=== PATIENT | female | born 1930 | race Caucasian/White ===

== ENCOUNTER 2016-08-16 17:25 | Observation (INO) | payer OTHER, BC ==
--- NOTE | 2016-08-16 18:01 | PDOC ---
History of Present Illness <Prerna Thomason - Last Filed: 08/16/16 18:48> - History of Present Illness Initial Comments: 08/16/16 18:00 85-year-old female with a past medical history of advanced COPD, on home oxygen , thyroid cancer, status post thyroidectomy and radiation, cardiomegaly, hypertension, hyperlipidemia, abdominal aortic aneurysm 5.8 cm, hyperlipidemia, gastric ulcer, She was recently hospitalized in April 2016, with possible pneumonia, as well as abdominal pain Patient states that her is currently in the hospital, and she is currently staying with her daughter, as well as with her special needs son She did have an aide, but no longer has one Patient is complaining of dizziness and lightheadedness whenever she sits up, and she feels nauseated when she sits up She also has multiple musculoskeletal complaints including right shoulder, right arm, left back, and right leg She denies any chest pain She states that she's been increasingly lightheaded for the past few days She said 4-5 days ago she had a sore throat and a temperature 100.2, but this has resolved She denies any cough or sputum She denies any vomiting or diarrhea She denies any dysuria urgency or frequency She does admit to some intermittent right-sided abdominal pain She also admits to some right calf pain She states that she came to the ER today because she was feeling more lightheaded She denies any other complaints at this time, and the remainder of the review of systems is negative <Rosa Vera - Last Filed: 08/17/16 14:09> - General Chief Complaint: Lightheaded Stated Complaint: DIZZY Time Seen by Provider: 08/16/16 17:41 Past History <Prerna Thomason - Last Filed: 08/16/16 18:48> - Past Medical History Anemia: Yes Asthma: No Cancer: Yes (THYROID) Cardiac Disorders: Yes ("ENLARGED HEART") CVA: No COPD: Yes (O2 DEPENDENT 5LNC) CHF: No Dementia: No Diabetes: No GI Disorders: No Disorders: No HTN: Yes Hypercholesterolemia: Yes Liver Disease: No Suicide Attempt (Hx): No Seizures: Yes (THYROIDECTOMY) Thyroid Disease: Yes (THYROIDECTOMY) - Surgical History Abdominal Surgery: No Appendectomy: No Cardiac Surgery: No Cholecystectomy: No Lung Surgery: No Neurologic Surgery: No Orthopedic Surgery: No - Psycho/Social/Smoking Cessation Hx Anxiety: No Suicidal Ideation: No Smoking History: Former smoker Have you smoked in the past 12 months: No Number of Cigarettes Smoked Daily: 0 If you are a former smoker, when did you quit?: 2012 Information on smoking cessation initiated: No Hx Alcohol Use: No Drug/Substance Use Hx: No Substance Use Type: None Hx Substance Use Treatment: No <Rosa Vrea - Last Filed: 08/17/16 14:09> - Past Medical History Allergies/Adverse Reactions: Allergies Allergy/AdvReac Type Severity Reaction Status Date / Time Penicillins Allergy Severe Rash Verified 05/10/16 15:54 Home Medications: Ambulatory Orders Levothyroxine [Synthroid -] 125 mcg PO DAILY 04/09/15 Nifedipine ER [Procardia XL -] 90 mg PO HS 07/20/15 Cholecalciferol (Vitamin D3) [Vitamin D3] 2,000 unit PO DAILY tablet 08/08/15 [place]-3 Fatty Acids [[place]-3] 200 mg PO DAILY 05/01/16 Acetaminophen [Tylenol .Regular Strength -] 650 mg PO Q4H PRN #0 tablet Pantoprazole Sodium [Protonix -] 40 mg PO DAILY #30 tablet.ec 05/04/16 Polyethylene Glycol 3350 [Miralax 119 gm Btl -] 17 gm PO DAILY bottle 05/04/16 Albuterol 2.5/Ipratropium 0.5 [Duoneb -] 1 amp NEB QIDR amp 05/16/16 Fluticasone/Salmeterol [Advair 250-50 Diskus] 1 each IH BID 08/16/16 Simvastatin 20 mg PO HS 08/16/16 Review of Systems - Review of Systems Able to Perform ROS?: Yes Comments:: 08/16/16 18:05 12 point review of systems is as per history of present illness and otherwise negative <Rosa Vera - Last Filed: 08/17/16 14:09> *Physical Exam - Vital Signs Last Vital Signs Temp Pulse Resp BP Pulse Ox 98.3 F 94 H 26 H 157/96 100 08/16/16 17:28 08/16/16 17:28 08/16/16 17:28 08/16/16 17:28 08/16/16 17:28 <Prerna Thomason - Last Filed: 08/16/16 18:48> - Vital Signs Last Vital Signs Temp Pulse Resp BP Pulse Ox 98.3 F 94 H 26 H 157/96 100 08/16/16 17:28 08/16/16 17:28 08/16/16 17:28 08/16/16 17:28 08/16/16 17:28 - Physical Exam Comments: 08/16/16 18:05 Physical exam Last Vital Signs Temp Pulse Resp BP Pulse Ox 98.3 F 94 H 26 H 157/96 100 08/16/16 17:28 08/16/16 17:28 08/16/16 17:28 08/16/16 17:28 08/16/16 17:28 GENERAL: The patient is awake, alert, and fully oriented, and in no apparent distress. HEAD: Normal with no signs of trauma. EYES: Sclera anicteric ENT: mucous membranes moist NECK: Normal range of motion, supple LUNGS: Breath sounds equal, clear to auscultation bilaterally. No wheezes, and no crackles. HEART: Regular rate and rhythm, normal S1 and S2 without murmur, rub or gallop. ABDOMEN: The abdomen is soft with normal bowel sounds There is diffuse right-sided abdominal tenderness, without guarding or rebound, and without localization EXTREMITIES: There is right calf tenderness, with full range of motion of the knees and hips bilaterally NEUROLOGICAL: pt is alert and answering questions, pupils are equal with in the context of bilateral cataract surgery Patient is moving all extremities equally, has no facial asymmetry, and has a grossly nonfocal neurologic exam PSYCH: Normal mood, normal affect. SKIN: Warm, Dry, <Rosa Vera - Last Filed: 08/17/16 14:09> ED Treatment Course - RADIOLOGY Radiograph Interpretation: 08/16/16 18:44 Referring Physician: Rosa Rodriguez Patient Name: Melanie Coello THIS IS A PRELIMINARYREPORT FROM [facility] DATE OF SERVICE: 2016-08-16 17:52:04.0 IMAGES: 77 EXAM: HEAD CT WITHOUT CONTRAST HISTORY:Dizziness COMPARISON: None. FINDINGS:Serial transaxial images of the brain are available without intravenous contrast agent demonstrating generalized mild to moderate cortical atrophy with diffuse areas of decreased signal surrounding the lateral ventricles most consistent with chronic small vessel disease. The ventricular system is unremarkable. There is no midline shift or mass-effect or acute hemorrhage. No abnormal fluid collection is seen. The mastoid air cells are well-aerated. The calvarium appears intact IMPRESSION: Findings of chronic parenchymal changes in the right THIS DOCUMENT HAS BEEN ELECTRONICALLY SIGNED Ace Jose MD 08/16/2016 18:35 EST 08/16/16 18:48 Referring Physician: Rosa Rodriguez Patient Name: Melanie Coello THIS IS A PRELIMINARYREPORT FROM [facility] DATE OF SERVICE: 2016-08-16 17:55:48.0 IMAGES: 491 EXAM: CT of the abdomen and pelvis without contrast HISTORY:Right-sided abdominal pain COMPARISON: None. FINDINGS:Serial transaxial images of the abdomen and pelvis are available without oral or intravenous contrast agent. Sagittal and coronal reformatted imaging is also available. Visible portions of the lung base demonstrate probable scarring versus atelectasis and or infiltrate at the right base. There is marked aneurysmal dilatation of the distal most thoracic aorta extending into the proximal abdominal aorta. This measures 5.8 cm in the AP dimension by 6.7 cm in transverse dimension by approximately 7.7 cm in length. A moderate size intrathoracic hiatal hernia is also seen. No focal abnormality of the liver is seen. The liver is mildly enlarged. There is minimal cholelithiasis. The spleen is normal. The pancreas is unremarkable. The adrenal glands are normal. The kidneys are normal other than vascular calcification. There is also a possible subcentimeter exophytic cyst involving the midpole of the left kidney. The urinary bladder is normal. The uterus lies to the right of midline with a large area of dense calcification suspicious for fibroid. There is a large amount of stool in the rectum and there is marked diverticulosis of the sigmoid and descending colon as well as the transverse and descending colon most consistent with diverticulitis. No inflammation is seen. A normal appendix is seen. No small bowel inflammation is seen. No bowel obstruction is seen. No free air is seen or free fluid. Atherosclerotic calcification of the aorta is seen. No adenopathy is seen. Spondylosis and degenerative changes of the lumbar spine is seen as well as sacroiliac joints without any acute osseous abnormality.. 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 Cholelithiasis. Findings of a probable cyst of the left kidney. Possible calcified uterine fibroids. Diverticulosis of the colon without diverticulitis THIS DOCUMENT HAS BEEN ELECTRONICALLY SIGNED Ace Jose MD <Prerna Thomason - Last Filed: 08/16/16 18:48> - LABORATORY CBC & Chemistry Diagram: 08/17/16 08:00 08/17/16 08:00 - RADIOLOGY Radiology Studies Ordered: Category Date Time Status ABDOMEN & PELVIS CT W/O CONTR [CT] Stat CT Scan 08/16/16 17:[address] WITHOUT CONTRAST [CT] Stat CT Scan 08/16/16 17:55 Ordered CHEST X-RAY PORTABLE* [RAD] Stat Radiology 08/16/16 17:57 Ordered DUPLEX VASCUL US-1 LEG [US] Stat Ultrasound 08/16/16 17:58 Ordered <Rosa Vera - Last Filed: 08/17/16 14:09> Medical Decision Making - Medical Decision Making 08/16/16 18:47 85-year-old female with multiple medical medical problems as documented above, presents with lightheadedness and dizziness, as well as multiple other complaints, and findings of abdominal tenderness on exam, as well as right calf tenderness . She has a history of a known stable AAA 08/16/16 18:49 Scan of the head without- Chronic parenchymal changes on the right, without new findings CT scan of the abdomen and pelvis without Visible portions of the lung bases demonstrate probable scarring versus atelectasis and/or infiltrate at the right base There is aneurysmal dilatation of the distalmost thoracic aorta extending into the proximal abdominal aorta This measures 5.8 cm x 6.7 cm There is a large amount of stool in the rectum with market diverticulosis, without diverticulitis SIGN OUT Case discussed in detail with oncoming Emergency Physician including history, physical exam and ancillary studies. Oncoming Emergency Physician has assumed care for the patient and will complete the evaluation and treatment. RHYS to Dr. Guevara at 7 PM awaiting all labwork and chest x-ray <Rosa Vera - Last Filed: 08/17/16 14:09> *DC/Admit/Observation/Transfer <Prerna Thomason - Last Filed: 08/16/16 18:48> <Rosa Vera - Last Filed: 08/17/16 14:09> Diagnosis at time of Disposition: Near syncope, Dizziness - Discharge Dispostion Condition at time of disposition: Stable - Referrals - Patient Instructions - Post Discharge Activity
[2016-08-16 19:02] LABS: MCH 23.9 pg (25.7-33.7); MCHC 31.4 g/dl (32.0-36.0); MEAN CELL VOLUME 76.2 fl (80-96); MEAN PLT VOLUME 9.5 fl (7.5-11.1); PLATELET COUNT 378 K/MM3 (134-434); RDW 15.2 % (11.6-15.6); WHITE BLOOD COUNT 8.7 K/mm3 (4.0-10.0)
[2016-08-16 19:34] LABS: ALK PHOS 68 U/L (32-92); ANION GAP 12 (8-16); BILIRUBIN,TOTAL 0.5 mg/dl (0.2-1.0); CALCIUM 8.8 mg/dl (8.4-10.2); CO2 29 mmol/L (22-28); CPK(DFH) 20 IU/L (26-140); CREATININE 0.6 mg/dl (0.6-1.3); GLUCOSE,RANDOM 86 mg/dl (74-106); MAGNESIUM 2.2 mg/dL (1.8-2.4); SGOT/AST 14 U/L (10-42); SGPT/ALT 10 U/L (10-40); TOT PROT 7.1 g/dl (6.4-8.3)
[2016-08-16 19:44] LABS: TROPONIN I (DFP) < 0.03 ng/ml (0.03-0.50)
--- NOTE | 2016-08-16 20:28 | PDOC ---
*Physical Exam - Vital Signs Last Vital Signs Temp Pulse Resp BP Pulse Ox 98.3 F 94 H 26 H 157/96 100 08/16/16 17:28 08/16/16 17:28 08/16/16 17:28 08/16/16 17:28 08/16/16 17:28 ED Treatment Course - LABORATORY CBC & Chemistry Diagram: 08/16/16 18:45 08/16/16 18:45 - ADDITIONAL ORDERS Additional order review: Laboratory Results 08/16/16 08/16/16 08/16/16 18:45 18:45 18:45 Sodium 143 Potassium 3.7 Chloride 102 Carbon Dioxide 29 H Anion Gap 12 BUN 17 Creatinine 0.6 Creat Clearance w eGFR > 60 Random Glucose 86 D Lactic Acid Calcium 8.8 Magnesium 2.2 Total Bilirubin 0.5 D AST 14 ALT 10 D Alkaline Phosphatase 68 D Creatine Kinase 20 L Troponin I < 0.03 L B-Natriuretic Peptide 467.58 H Total Protein 7.1 D Albumin 4.0 D Lipase 31 08/16/16 18:30 Sodium Potassium Chloride Carbon Dioxide Anion Gap BUN Creatinine Creat Clearance w eGFR Random Glucose Lactic Acid 0.833 Calcium Magnesium Total Bilirubin AST ALT Alkaline Phosphatase Creatine Kinase Troponin I B-Natriuretic Peptide Total Protein Albumin Lipase 08/16/16 18:45 RBC 4.53 MCV 76.2 L MCHC 31.4 L RDW 15.2 D MPV 9.5 Progress Note - Progress Note Progress Note: Care of this patient was transferred to [place] from [place]. Beltran at 1900 hrs. Patient is an 85-year-old female who has complaint of near syncopal type events multiple times prior to coming in. Addition to that she is complaining of multiple skeletal muscle aches. Patient has multiple medical problems and is on multiple medications . Patient had a workup including lab work which was at its baseline with the exception of BNP which I don't have an old one to compare to but was mildly elevated at about 467. I do not have an old one to compare with. Patient denied any chest pain but did complain of some nausea and shortness of breath with her near syncope events. Patient at her baseline does have chronic shortness of breath and is on home oxygen however. Patient does have a questionable social situation which will need to be evaluated by social work prior to her discharge. Patient had ultrasound Doppler because she was complaining of leg pain which was negative for DVT. Discussed with patient with the hospitalist Dr. Cadena who was admitted patient to a observation bed telemetry *DC/Admit/Observation/Transfer Diagnosis at time of Disposition: Near syncope - Discharge Dispostion Condition at time of disposition: Good Admit: Yes - Referrals Referrals: Petey Huitron MD [Primary Care Provider] - - Patient Instructions - Post Discharge Activity
--- NOTE | 2016-08-16 22:00 | HP ---
Admitting History and Physical - Admission Chief Complaint: dizziness History of Present Illness: 85-year-old female with a significant medical history of: COPD (O2 Dependent), Thyroid Ca s/p thyroidectomy and xrt, Cardiomegaly, HTN, Hypercholestoleremia, Gastric Ulcer, abdominal/aortic aneurysm who presents to the ER for evaluation of LH. Patient reports that she started feeling dizzy several days ago but today it got worse. She reports she could not even read the papers it was so bad. She felt like she was going to pass out. She reports that sitting up aggravates her dizziness and laying down eases it slightly. She reports associated palps, mild nausea, R arm pain. She also reports her vision not being clear. She reports sob worse than usual baseline. She denies chest pain, numbness, syncope, headache, vomiting, sweating. She reports her arm pain is achy 5/10, and worse with movement. She reports getting some relief with Tylenol. She reports having crampy abdominal pain x 1 day which starts on her right side and travels across her abdomen. She reports getting some relief with Tylenol. She reports having good bowel movements over several days. She denies any dysuria, blood in stools or urine. She reports chronic urinary incontinence but has noted increased frequency at night. She denies any recent trauma or falls. PMH/PSH: Endoscopy (2016), Colonoscopy (2016). COPD (O2 Dependent), Thyroid Ca s /p thyroidectomy and xrt, Cardiomegaly, HTN, Hypercholestoleremia, Gastric Ulcer , abdominal/aortic aneurysm. Social- Lives at home wit DTR. Denies alcohol or rec drugs Famhx:non contributory Ros neg except for hpi Physical General- in nad, alert hent- at/nc, jasmina, neck supple, trachea midline, no lymphadenopathy, eomi resp- no cough, no wheeze, diminished air entry, no accessory muscle use cards- s1s2 heard, no leg edema, lower extremity pulses +1, no jvd skin- clean, intact,no rash, no open areas gi- diffuse abdominal pain with palpation more so to RUQ psych- cooperative, no agitation, normal affect neuro- cn2-12 intact, speech clear, no seizure, no arm or leg drift, no ftn ataxia, muscle strength 5/5 bue/ble musk- normal arom bue/ble Prob list dizziness copd o2 dependent htn hlp hx gastric ulcer abdominal aneurysm sore throat constipation imaging: cxr reviewed ctap reviewed ekg reviewed cth negative for acut process A/P 85-year-old female with a significant medical history of: COPD (O2 Dependent), Thyroid Ca s/p thyroidectomy and xrt, Cardiomegaly, HTN, Hypercholestoleremia, Gastric Ulcer, abdominal/aortic aneurysm who presents to the ER for evaluation of LH placed in obs for eval of their emergent condition 1. Dizziness Cxr appears clear on my read 1st trop negative, ekg show afib ventricular rate 100, RBBB, left posterior fascicular block, no angel/std. Repeat ekg shows sinus rhythm with pacs, RBBb, Left posterior fascicular block check orthostatic vital, cus, echo cycle trop cth neg for acute process cardiac tele cards consult 2. Abdominal pain ctap negative for acute process shows Aortic aneurysm 5.8cm, large amount of stool in rectum, no appendicitis, obstruction or diverticulitis diffuse abdomen pain on exam check lactic acid Serial abdomen exams 3. Copd on home O2 cont home o2 cont home meds 3. htn cont home meds 5. HLP cont home meds 6. hx Abdominal aneurysm ctap shows aortic aneurusym 5.8 cm x 6.[address] scan 04/2016 shows aortic aneurysm 5.2 x 4.5cm b/p control Consider vascular consult 7. Sore throat check rapid strep, influenza throat lozenge prn 8. hx of gastric ulcer cont ppi 9. constipation cont home meds enema x 1 dvt prophy scd,oob, hep sq fen low salt dispo- obs for dizziness evaluation History Source: Patient Limitations to Obtaining History: No Limitations - Past Medical History Cardiovascular: Yes: HTN, Hyperlipdemia, Other (cardiomegaly) Pulmonary: Yes: COPD, O2 Dependent Heme/Onc: Yes: Anemia Endocrine: Yes: Other (Thyroid Ca) - Smoking History Smoking history: Former smoker Have you smoked in the past 12 months: No Aproximately how many cigarettes per day: 0 If you are a former smoker, when did you quit?: 2012 - Alcohol/Substance Use Hx Alcohol Use: No History of Substance Use: reports: None - Social History ADL: Independent Occupation: retired History of Recent Travel: No Home Medications - Allergies Allergies/Adverse Reactions: Allergies Allergy/AdvReac Type Severity Reaction Status Date / Time Penicillins Allergy Severe Rash Verified 05/10/16 15:54 - Home Medications Home Medications: Ambulatory Orders Levothyroxine [Synthroid -] 125 mcg PO DAILY 04/09/15 Nifedipine ER [Procardia XL -] 90 mg PO HS 07/20/15 Cholecalciferol (Vitamin D3) [Vitamin D3] 2,000 unit PO DAILY tablet 08/08/15 [place]-3 Fatty Acids [[place]-3] 200 mg PO DAILY 05/01/16 Acetaminophen [Tylenol .Regular Strength -] 650 mg PO Q4H PRN #0 tablet Pantoprazole Sodium [Protonix -] 40 mg PO DAILY #30 tablet.ec 05/04/16 Polyethylene Glycol 3350 [Miralax 119 gm Btl -] 17 gm PO DAILY bottle 05/04/16 Albuterol 2.5/Ipratropium 0.5 [Duoneb -] 1 amp NEB QIDR amp 05/16/16 Fluticasone/Salmeterol [Advair 250-50 Diskus] 1 each IH BID 08/16/16 Simvastatin 20 mg PO HS 08/16/16 Family Disease History - Family Disease History Family Disease History: Other: Mother (diveticulitis) Physical Examination Vital Signs: Vital Signs Temperature 98.3 F 08/16/16 17:28 Pulse Rate 94 H 08/16/16 17:28 Respiratory Rate 26 H 08/16/16 17:28 Blood Pressure 157/96 08/16/16 17:28 O2 Sat by Pulse Oximetry (%) 100 08/16/16 17:28
[2016-08-16] MEDS ORDERED: ONDANSETRON 4 MG/2 ML VIAL IVPB PRN (22:01)
[2016-08-16] MEDS ORDERED: BENZOCAINE/MENTH/CETYLPYRD CL 1 EACH LOZENGE MM PRN (22:42)
[2016-08-17] MEDS: ACETAMINOPHEN 325 MG TABLET (FP) PO PRN ×2 (00:45→21:27)
[2016-08-17] MEDS: SODIUM PHOSPHATE/NA BIPHOS 133 ML ENEMA PR ONE ×2 (00:45)
[2016-08-17 02:03] VITALS: BMI 24.9
[2016-08-17 08:55] LABS: BASOPHIL 0.4 % (0-2.0); EOSINOPHIL 2.7 % (0-4.5); MCH 23.5 pg (25.7-33.7); MCHC 30.7 g/dl (32.0-36.0); MEAN CELL VOLUME 76.7 fl (80-96); MEAN PLT VOLUME 9.2 fl (7.5-11.1); NEUTROPHILS 69.9 % (42.8-82.8); PLATELET COUNT 328 K/MM3 (134-434); RDW 15.1 % (11.6-15.6); WHITE BLOOD COUNT 6.5 K/mm3 (4.0-10.0)
[2016-08-17 08:56] LABS: ALBUMIN 3.1 g/dl (3.5-5.0); ALK PHOS 57 U/L (32-92); ANION GAP 7 (8-16); BILIRUBIN,TOTAL 0.3 mg/dl (0.2-1.0); CALCIUM 8.4 mg/dl (8.4-10.2); CO2 31 mmol/L (22-28); CREATININE 0.6 mg/dl (0.6-1.3); GLUCOSE,RANDOM 100 mg/dl (74-106); SGOT/AST 12 U/L (10-42); TOT PROT 5.8 g/dl (6.4-8.3)
[2016-08-17 09:22] LABS: SGPT/ALT < 9 U/L (10-40)
[2016-08-17] MEDS ORDERED: OMEGA PO SCH (10:00)
[2016-08-17] MEDS ORDERED: FATTY ACIDS PO SCH (10:00)
--- NOTE | 2016-08-17 10:19 | EKG ---
Test Reason : Blood Pressure : / mmHG Vent. Rate : 091 BPM Atrial Rate : 091 BPM P-R Int : 152 ms QRS Dur : 132 ms QT Int : 392 ms P-R-T Axes : 065 114 054 degrees QTc Int : 482 ms POOR DATA QUALITY, INTERPRETATION MAY BE ADVERSELY AFFECTED SINUS RHYTHM WITH PREMATURE ATRIAL COMPLEXES RIGHT BUNDLE BRANCH BLOCK LEFT POSTERIOR FASCICULAR BLOCK BIFASCICULAR BLOCK ABNORMAL ECG WHEN COMPARED WITH ECG OF 16-AUG-2016 19:34, NO SIGNIFICANT CHANGE WAS FOUND Confirmed by BONILLA JACQUES MD ([id number]) on 08/17/2016 10:18:48 AM Referred By: Confirmed By:BONILLA JACQUES MD
--- NOTE | 2016-08-17 10:22 | EKG ---
Test Reason : Blood Pressure : / mmHG Vent. Rate : 097 BPM Atrial Rate : 097 BPM P-R Int : 154 ms QRS Dur : 130 ms QT Int : 384 ms P-R-T Axes : 069 113 042 degrees QTc Int : 487 ms POOR DATA QUALITY, INTERPRETATION MAY BE ADVERSELY AFFECTED SINUS RHYTHM WITH PREMATURE SUPRAVENTRICULAR COMPLEXES RIGHT BUNDLE BRANCH BLOCK LEFT POSTERIOR FASCICULAR BLOCK BIFASCICULAR BLOCK ABNORMAL ECG NO PREVIOUS ECGS AVAILABLE Confirmed by BONILLA JACQUES MD ([id number]) on 08/17/2016 10:21:54 AM Referred By: ISA Confirmed By:BONILLA JACQUES MD
[2016-08-17] MEDS ORDERED: PT OWN MED DRAWER 7, Y5N ONE ×3 (10:35→22:06)
[2016-08-17] MEDS: HEPARIN NA (PORCINE) 5,000 UNITS/ML 1ML VIAL SQ SCH ×2 (10:52→21:27)
[2016-08-17] MEDS: POLYETHYLENE GLYCOL 3350 119 GM BTL PO SCH (10:52)
[2016-08-17] MEDS: CHOLECALCIFEROL (VITAMIN D3) 1,000 UNIT TABLET (FP) PO SCH (10:53)
[2016-08-17] MEDS: PANTOPRAZOLE 40 MG TABLET (FP) PO SCH (10:53)
[2016-08-17] MEDS: BUDESONIDE/FORMETEROL FUMARATE 80/4.5 mcg INHALER IH SCH ×2 (10:56→21:28)
--- NOTE | 2016-08-17 12:05 | CONSULT ---
Consult Consult Specialty:: Cardiology Referred by:: Rissa Acuña Reason for Consultation:: Dizziness - History of Present Illness History of Present Illness: 85-year-old female with past tobacco, HTN, HLD, COPD (O2 Dependent), Thyroid Ca s/p thyroidectomy and xrt, Gastric Ulcer, abdominal and aortic aneurysm -> evaluated in 08/[address] Montez -> Aneurysm had not changed from 03/02 to 07/02 to 08/03 -. recommended follow-up in 1yr or sooner if symptoms, here in 05/03 with severe abdominal pain that had been recurrent for about a yr -> recent abdominal US showed a aneurysm measuring 5.8cm, now present with dizziness for 2 weeks Patient has no hx of SC, CP syndrome. She says she had an echo and stress test in the past -> results not available to me . Echo was ordered in 05/03 but not done For the last 2 weeks,she has been having intermittent dizziness. She admits to past history of dizziness, but says, it's been worse lately and has been continuous since yesterday. The dizziness is worse with sitting up She denies CP, but gets occasional short-lived palpitations She denies cough, chills, diarrhea, but had low grade temp 2 days ago - History Source History Provided By: Patient - Past Medical History Cardio/Vascular: Yes: HTN, Hyperlipdemia, Other (Thoracic/AAA -> stable since ) Pulmonary: Yes: COPD, O2 Dependent Endocrine: Yes: Other (Thyroid Ca) - Past Surgical History Past Surgical History: Yes: Cataract Removal (b/l) - Alcohol/Substance Use Hx Alcohol Use: No History of Substance Use: reports: None - Smoking History Smoking history: Former smoker Have you smoked in the past 12 months: No Aproximately how many cigarettes per day: 0 If you are a former smoker, when did you quit?: 2012 - Social History Usual Living Arrangement: Alone (daughter is next door) ADL: Independent Occupation: retired History of Recent Travel: No Home Medications - Allergies Allergies/Adverse Reactions: Allergies Allergy/AdvReac Type Severity Reaction Status Date / Time Penicillins Allergy Severe Rash Verified 05/10/16 15:54 - Home Medications Home Medications: Ambulatory Orders Levothyroxine [Synthroid -] 125 mcg PO DAILY 04/09/15 Nifedipine ER [Procardia XL -] 90 mg PO HS 07/20/15 Cholecalciferol (Vitamin D3) [Vitamin D3] 2,000 unit PO DAILY tablet 08/08/15 [place]-3 Fatty Acids [[place]-3] 200 mg PO DAILY 05/01/16 Acetaminophen [Tylenol .Regular Strength -] 650 mg PO Q4H PRN #0 tablet Pantoprazole Sodium [Protonix -] 40 mg PO DAILY #30 tablet.ec 05/04/16 Polyethylene Glycol 3350 [Miralax 119 gm Btl -] 17 gm PO DAILY bottle 05/04/16 Albuterol 2.5/Ipratropium 0.5 [Duoneb -] 1 amp NEB QIDR amp 05/16/16 Fluticasone/Salmeterol [Advair 250-50 Diskus] 1 each IH BID 08/16/16 Simvastatin 20 mg PO HS 08/16/16 Family Disease History - Family Disease History Family History: Denies (premature cAD) Family Disease History: Other: Mother (diveticulitis) Review of Systems - Review of Systems Constitutional: reports: Fever (low grade) Eyes: reports: No Symptoms HENT: reports: No Symptoms Neck: reports: No Symptoms Cardiovascular: reports: Palpitations, Shortness of Breath Respiratory: reports: SOB, SOB on Exertion Gastrointestinal: reports: Abdominal Pain Genitourinary: reports: No Symptoms Musculoskeletal: reports: No Symptoms Neurological: reports: Dizziness Psychiatric: reports: Anxiety Physical Exam Vital Signs: Vital Signs Temperature 98.5 F 08/17/16 05:56 Pulse Rate 77 08/17/16 05:56 Respiratory Rate 18 08/17/16 08:43 Blood Pressure 132/69 08/17/16 05:56 O2 Sat by Pulse Oximetry (%) 100 08/17/16 08:43 Constitutional: Yes: No Distress Eyes: Yes: Conjunctiva Clear HENT: Yes: Atraumatic Neck: Yes: Supple Cardiovascular: Yes: Regular Rate and Rhythm, Murmur Respiratory: No: Rales, Rhonchi, Wheezes Gastrointestinal: Yes: Normal Bowel Sounds, Tenderness Extremities: Yes: Other (warm) Peripheral Pulses WNL: Yes Neurological: Yes: Alert, Oriented Psychiatric: Yes: Alert, Oriented Labs: CBC, BMP 08/17/16 08:00 08/17/16 08:00 Imaging - Results Chest X-ray: Report Reviewed, Image Reviewed EKG: Report Reviewed, Image Reviewed Other: Other (Tele -. Sr, ST Abd/pelvis CT -. 5.8 cm lower thoracic/upped abd A ) Assessment/Plan 85 yo female with the above history , here with dizziness, intermittently for 2 weeks, and persistently since yesterday. No evidence of ACS or CHF She is not orthostatic Tele -> SR, ST May be viral/inner-ear in etiology Rec: Continue nifedipine, statin Check TFTs I will check echo Per IM/pulm Thanks! D/w Nathalie Acuña
--- NOTE | 2016-08-17 12:39 | PN ---
[id number] OBJECTIVE: patient is a 85-year-old female with a significant medical history of : COPD (O2 Dependent), Thyroid Ca s/p thyroidectomy and xrt, Cardiomegaly, HTN, Hypercholestoleremia, Gastric Ulcer, abdominal/aortic aneurysm. patient was admitted from the emergency department to observation for presyncopal episode Vital Signs Period Temp Pulse Resp BP Sys/Pelayo Pulse Ox Last 24 Hr 98.3 F-98.5 F 74-98 18-20 132-139/64-77 100-100 GENERAL: The patient is awake, alert, and fully oriented, anxious . HEAD: Normal with no signs of trauma. EYES: PERRL, extraocular movements intact, sclera anicteric, conjunctiva clear. No ptosis. ENT: Ears normal, nares patent, oropharynx clear without exudates, moist mucous membranes. NECK: Trachea midline, full range of motion, supple. LUNGS: Breath sounds equal, clear to auscultation bilaterally to apexes, diminished to bases, no wheezes, no crackles, no accessory muscle use. HEART: Regular rate and rhythm, S1, S2 without murmur, rub or gallop. ABDOMEN: Soft, nontender, nondistended, normoactive bowel sounds, no guarding, no rebound, no hepatosplenomegaly, no masses. EXTREMITIES: 2+ pulses, warm, well-perfused, no edema. NEUROLOGICAL: Cranial nerves II through XII grossly intact. Normal speech, gait not observed. PSYCH: Normal mood, normal affect. SKIN: Warm, dry, normal turgor, no rashes or lesions noted Laboratory Results - last 24 hr 08/16/16 08/17/16 08/17/16 23:28 03:00 08:00 WBC 6.5 RBC 3.94 Hgb 9.3 L D Hct 30.2 L MCV 76.7 L MCHC 30.7 L RDW 15.1 Plt Count 328 MPV 9.2 Neutrophils % 69.9 D Lymphocytes % 17.6 D Monocytes % 9.4 D Eosinophils % 2.7 D Basophils % 0.4 D Sodium Potassium Chloride Carbon Dioxide Anion Gap BUN Creatinine Creat Clearance w eGFR Random Glucose Lactic Acid 0.389 L Calcium Total Bilirubin AST ALT Alkaline Phosphatase Troponin I 0.02 Total Protein Albumin 08/17/16 08/17/16 08:00 08:10 WBC RBC Hgb Hct MCV MCHC RDW Plt Count MPV Neutrophils % Lymphocytes % Monocytes % Eosinophils % Basophils % Sodium 142 Potassium 3.6 Chloride 104 Carbon Dioxide 31 H Anion Gap 7 L BUN 11 D Creatinine 0.6 Creat Clearance w eGFR > 60 Random Glucose 100 Lactic Acid Calcium 8.4 Total Bilirubin 0.3 D AST 12 ALT < 9 L Alkaline Phosphatase 57 Troponin I < 0.03 Total Protein 5.8 L Albumin 3.1 L D Active Medications Generic Name Dose Route Start Last Admin Trade Name Freq PRN Reason Stop Dose Admin Acetaminophen 650 mg 08/16/16 22:01 08/17/16 00:45 Tylenol - PO 650 mg Q4H PRN Administration FEVER OR PAIN Atorvastatin Calcium 10 mg 08/17/16 22:00 Lipitor - PO HS PAUL Benzocaine/Menthol 1 each 08/16/16 22:42 Cepacol Lozenge - MM PRN PRN SORE THROAT Budesonide/Formoterol Fumarate 2 puff 08/17/16 10:00 08/17/16 10:56 Symbicort 80/4.5mcg - IH 2 puff BID PAUL Administration Cholecalciferol 2,000 unit 08/17/16 10:00 08/17/16 10:53 Vitamin D3 - PO 2,000 unit DAILY PAUL Administration Heparin Sodium (Porcine) 5,000 unit 08/17/16 10:00 08/17/16 10:52 Heparin - SQ 5,000 unit BID PAUL Administration Nifedipine 90 mg 08/17/16 22:00 Procardia Xl - PO HS PAUL Ondansetron HCl 4 mg 08/16/16 22:01 Zofran Injection IVPB Q4H PRN NAUSEA AND/OR VOMITING Pantoprazole Sodium 40 mg 08/17/16 10:00 08/17/16 10:53 Protonix - PO 40 mg DAILY PAUL Administration Polyethylene Glycol 17 gm 08/17/16 10:00 08/17/16 10:52 Miralax (For Daily Use) - PO 17 gm DAILY PAUL Administration Microbiology 08/16/16 23:30 Nasopharyngeal Swab Influenza Types A,B Antigen (ALEC) - Final 08/16/16 23:30 Nasopharyngeal Swab - Final 08/16/16 23:30 Throat Group A Strep Rapid Antigen - Final NEGATIVE FOR THE ANTIGEN OF BETA HEMOLYTIC STREP GROUP A IMAGING Chest xray, no infilitrate no effusion noted ct of head, no acute pathology noted ctap negative for acute process shows Aortic aneurysm 5.8cm, large amount of stool in rectum, no appendicitis, obstruction or diverticulitis ASSESSMENT/PLAN: 1.card presyncopal episode - troponin 3 WNL -Echo (06/24/2015), LV WNL grade 1 diastolic dysfunction repeat echo ordered - pending carotid doppler -EKG, bifasicular block, right bundle branch block, unchanged from prior -cardiology consulted and followed hypertension - continue procardia 2) vasc: - pmh of AAA, ct scan of abd/pelvis reviewed, AAA, 5.8cm unchanged from prior - strict b/p control 3) pulm copd - continue home o2, prn albuterol neb - ct scan of abd/pelvis ? r LLL infilitrate vs athelectasis, pt afebrile, asymptomatic, no leukocytosis noted, hold off on abx - continue symbicort - keep spo2 above 92% 4) GI hx of gastric ulcer - cont ppi constipation miralax daily dvt prophy scd,oob, hep sq fen low salt dispo- obs for pre-syncopal episode Visit type - Emergency Visit Emergency Visit: Yes ED Registration Date: 08/16/16 Care time: The patient presented to the Emergency Department on the above date and was hospitalized for further evaluation of their emergent condition. - New Patient This patient is new to me today: No - Critical Care Critical Care patient: No - Discharge Referral Referred to [facility] Yes Physician Referral: Petey Huitron MD (Int Med)
[2016-08-17] MEDS: LEVOTHYROXINE NA 125 MCG TABLET (FP) PO SCH (12:56)
--- NOTE | 2016-08-17 13:38 | PN ---
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 No need to fix right now. Needs intervention when greater than 6cm. Since the aneurysm is in the chest, would need CT surgery followup to track the size of the aneurysm. Thanks Stevie Brewster DO
[2016-08-17 14:27] LABS: URINE APPEARANCE Cloudy; URINE BILIRUBIN Negative (NEGATIVE); URINE BLOOD Negative (NEGATIVE); URINE GLUCOSE (UA) Negative (NEGATIVE); URINE KETONE Negative (NEGATIVE); URINE LEUK ESTERASE Negative (NEGATIVE); URINE NITRITE Negative (NEGATIVE); URINE UROBILINOGEN 1.0 E.U/dl (0.2-1.0)
[2016-08-17 14:29] LABS: URINE COLOR YELLOW; URINE PROTEIN 1+ (NEGATIVE)
[2016-08-17 14:30] LABS: URINE BACTERIA FEW /hpf (NEGATIVE); URINE RBC 0-3 /hpf (0-3); URINE WBC 0-3 (3-5)
[2016-08-17 18:00] LABS: FREE T4 1.42 ng/dl (0.76-1.46); THYROID STIMULATING HORMONE 0.19 uIU/ml (0.358-3.74)
[2016-08-17] MEDS ORDERED: ATORVASTATIN CA 10 MG TABLET (FP) PO SCH (22:00)
[2016-08-17] MEDS ORDERED: NIFEdipine E.R. 30 MG TABLET (FP) PO SCH (22:00)
[2016-08-18 06:35] VITALS: PULSE 78; TEMP 97.7
[2016-08-18] MEDS: LEVOTHYROXINE NA 125 MCG TABLET (FP) PO SCH (06:52)
[2016-08-18] MEDS ORDERED: PT OWN MED DRAWER 7, Y5N ONE (10:36)
[2016-08-18] MEDS: POLYETHYLENE GLYCOL 3350 119 GM BTL PO SCH (10:38)
[2016-08-18] MEDS: HEPARIN NA (PORCINE) 5,000 UNITS/ML 1ML VIAL SQ SCH (10:38)
[2016-08-18] MEDS: BUDESONIDE/FORMETEROL FUMARATE 80/4.5 mcg INHALER IH SCH (10:38)
[2016-08-18] MEDS: PANTOPRAZOLE 40 MG TABLET (FP) PO SCH (10:39)
[2016-08-18] MEDS: CHOLECALCIFEROL (VITAMIN D3) 1,000 UNIT TABLET (FP) PO SCH (10:39)
[2016-08-18 11:26] VITALS: BP 110/59
[2016-08-18] MEDS ORDERED: DICYCLOMINE HCL 10 MG CAPSULE PO PRN (11:50)
[2016-08-18] MEDS: ACETAMINOPHEN 325 MG TABLET (FP) PO PRN (12:11)
--- NOTE | 2016-08-18 12:33 | DS ---
[id number] female with a significant medical history of: COPD (O2 Dependent), Thyroid Ca s/p thyroidectomy and xrt, Cardiomegaly, HTN, Hypercholestoleremia, Gastric Ulcer, abdominal/aortic aneurysm who presents to the ER for evaluation of LH. Patient reports that she started feeling dizzy several days ago but today it got worse. She reports she could not even read the papers it was so bad. She felt like she was going to pass out. She reports that sitting up aggravates her dizziness and laying down eases it slightly. She reports associated palps, mild nausea, R arm pain. She also reports her vision not being clear. She reports sob worse than usual baseline. She denies chest pain, numbness, syncope, headache, vomiting, sweating. She reports her arm pain is achy 5/10, and worse with movement. She reports getting some relief with Tylenol. She reports having crampy abdominal pain x 1 day which starts on her right side and travels across her abdomen. She reports getting some relief with Tylenol. She reports having good bowel movements over several days. She denies any dysuria, blood in stools or urine. She reports chronic urinary incontinence but has noted increased frequency at night. She denies any recent trauma or falls. PMH/PSH: Endoscopy (2016), Colonoscopy (2016). COPD (O2 Dependent), Thyroid Ca s /p thyroidectomy and xrt, Cardiomegaly, HTN, Hypercholestoleremia, Gastric Ulcer , abdominal/aortic aneurysm. Social- Lives at home wit DTR. Denies alcohol or rec drugs Famhx:non contributory Vital Signs Period Temp Pulse Resp BP Sys/Pelayo Pulse Ox Last 24 Hr 97.7 F-99.1 F 78-96 19-22 104-110/57-72 99-100 PHYSICAL EXAM GENERAL: The patient is awake, alert, and fully oriented, anxious . HEAD: Normal with no signs of trauma. EYES: PERRL, extraocular movements intact, sclera anicteric, conjunctiva clear. No ptosis. ENT: Ears normal, nares patent, oropharynx clear without exudates, moist mucous membranes. NECK: Trachea midline, full range of motion, supple. LUNGS: Breath sounds equal, clear to auscultation bilaterally to apexes, diminished to bases, no wheezes, no crackles, no accessory muscle use. HEART: Regular rate and rhythm, S1, S2 without murmur, rub or gallop. ABDOMEN: Soft, nontender, nondistended, normoactive bowel sounds, no guarding, no rebound, no hepatosplenomegaly, no masses. EXTREMITIES: 2+ pulses, warm, well-perfused, no edema. NEUROLOGICAL: Cranial nerves II through XII grossly intact. Normal speech, gait not observed. PSYCH: Normal mood, normal affect. SKIN: Warm, dry, normal turgor, no rashes or lesions noted LABS Laboratory Results - last 24 hr 08/17/16 08/17/16 08:00 13:55 TSH 0.19 L D Free T4 1.42 D Urine Color Yellow Urine Appearance Cloudy Urine pH 7.0 D Ur Specific [place] 1.015 Urine Protein 1+ H Urine Glucose (UA) Negative Urine Ketones Negative Urine Blood Negative Urine Nitrite Negative Urine Bilirubin Negative Urine Urobilinogen 1.0 e.u/dl Ur Leukocyte Esterase Negative Urine RBC 0-3 Urine WBC 0-3 Ur Epithelial Cells Moderate Amorphous Phosphates Moderate Urine Bacteria Few Hyaline Casts 3-5 Microbiology 08/17/16 13:55 Urine - Urine Clean Catch Urine Culture - Final 08/16/16 23:30 Throat Throat Culture - Final NO BETA HEMOLYTIC STREPTOCOCCI ISOLATED 08/16/16 23:30 Throat Group A Strep Rapid Antigen - Final NEGATIVE FOR THE ANTIGEN OF BETA HEMOLYTIC STREP GROUP A 08/16/16 18:45 Blood - Peripheral Venous Blood Culture - Preliminary NO GROWTH OBTAINED AFTER 24 HOURS, INCUBATION TO CONTINUE FOR 4 DAYS. 08/16/16 18:35 Blood - Peripheral Venous Blood Culture - Preliminary NO GROWTH OBTAINED AFTER 24 HOURS, INCUBATION TO CONTINUE FOR 4 DAYS. 08/16/16 23:30 Nasopharyngeal Swab Respiratory Virus Panel - Preliminary 08/16/16 23:30 Nasopharyngeal Swab Influenza Types A,B Antigen (ALEC) - Final , negative l 08/16/16 23:30 Nasopharyngeal Swab - Final IMAGING Chest xray, no infilitrate no effusion noted ct of head, no acute pathology noted ctap negative for acute process shows Aortic aneurysm 5.8cm, large amount of stool in rectum, no appendicitis, obstruction or diverticulitis HOSPITAL COURSE: Patient was admitted for presyncopal episode, troponin 3 WNL. Echo resulted as grade I I systolic dysfunction, moderate mild MR mild TR LV WNL EKG, bifasicular block, right bundle branch block, unchanged from prior. cardiology Dr Nguyen was consulted. Patient was kept on Procardia, blood pressure remained at goal. Patient has a pmh of AAA, ct scan of abd/pelvis reviewed, AAA, 5.8cm unchanged from prior. vascular was consulted, no surgical intervention strict blood pressure control as per vascular surgeon, Dr Brewster. Patient has a pmh of copd. Symbicort was continued during hospitalization, SpO2 remained above 92% with supplemental oxygen (patient's home dose). PPI was continued during hospitalization because of the patient's history of gastric ulcer. She was noted to have constipation on CT scan, MiraLAXwas given with good results. Date of Admission:08/16/16 Date of Discharge: 08/18/16 Minutes to complete discharge: 45 Discharge Summary Reason For Visit: NEAR SYNCOPE Current Active Problems Dizziness (Acute) Near syncope (Acute) Condition: Improved - Instructions Referrals: Petey Huitron MD [Primary Care Provider] - Disposition: VNS/HOME HEALTH CARE - Home Medications Comprehensive Discharge Medication List: Ambulatory Orders Levothyroxine [Synthroid -] 125 mcg PO DAILY 04/09/15 Nifedipine ER [Procardia XL -] 90 mg PO HS 07/20/15 Cholecalciferol (Vitamin D3) [Vitamin D3] 2,000 unit PO DAILY tablet 08/08/15 [place]-3 Fatty Acids [[place]-3] 200 mg PO DAILY 05/01/16 Acetaminophen [Tylenol .Regular Strength -] 650 mg PO Q4H PRN #0 tablet Pantoprazole Sodium [Protonix -] 40 mg PO DAILY #30 tablet.ec 05/04/16 Polyethylene Glycol 3350 [Miralax 119 gm Btl -] 17 gm PO DAILY bottle 05/04/16 Albuterol 2.5/Ipratropium 0.5 [Duoneb -] 1 amp NEB QIDR amp 05/16/16 Fluticasone/Salmeterol [Advair 250-50 Diskus] 1 each IH BID 08/16/16 Simvastatin 20 mg PO HS 08/16/16 This patient is new to me today: Yes Date on this admission: 08/21/16 Emergency Visit: No Critical Care patient: No - Discharge Referral Referred to [facility] Yes Physician Referral: Petey Huitron MD (Int Med)
== END 2016-08-18 14:51 | disposition home health service (06) ==
LOC: FER 17:25 → FM/S 21:41
PROVIDERS: ADMIT Internal Medicine; ATTEND Nurse Practitioner Family
DX: R42 Dizziness and giddiness (principal); R55 Syncope and collapse; J44.9 Chronic obstructive pulmonary disease, unspecified; Z99.81 Dependence on supplemental oxygen; J02.9 Acute pharyngitis, unspecified; M79.1 Myalgia; I71.4 Abdominal aortic aneurysm, without rupture; E78.00 Pure hypercholesterolemia, unspecified; I10 Essential (primary) hypertension; I51.7 Cardiomegaly; K59.00 Constipation, unspecified; Z87.11 Personal history of peptic ulcer disease; Z85.850 Personal history of malignant neoplasm of thyroid; F41.9 Anxiety disorder, unspecified; I45.2 Bifascicular block
CPT/HCPCS: 36415; 70450-TC; 71010-TC; 74176-TC; 80053; 81003; 81015; 82550; 83605; 83690; 83735; 83880; 84439; 84443; 84484; 85025; 85027; 87040; 87070; 87086; 87254; 87430; 87804; 93005; 93306-TC; 93880-TC; 93971-TC; 99284-25; G0378; J1644